=== PATIENT | male | born 1965 | race Caucasian/White ===

== ENCOUNTER 2019-12-28 17:57 | Emergency (ER) | payer OTHER ==
[~2019-12-28] VITALS: Ht 188 cm; Wt 101.6 kg
== END 2019-12-28 22:22 | disposition home or self-care (01) ==
LOC: ER 17:57
DX: J06.9 Acute upper respiratory infection, unspecified (principal)

== ENCOUNTER 2020-09-04 20:10 | Emergency (ER) | payer OTHER ==
[~2020-09-04] VITALS: Ht 188 cm; Wt 98.4 kg
[2020-09-05] MEDS ORDERED: BACTRIM DS TAB1 EACH PO (02:19)
== END 2020-09-05 02:28 | disposition home or self-care (01) ==
LOC: ER 20:10
DX: N39.0 Urinary tract infection, site not specified (principal); B34.9 Viral infection, unspecified

== ENCOUNTER 2021-08-01 13:03 | Emergency (ER) | payer OTHER ==
[~2021-08-01] VITALS: Ht 188 cm; Wt 101.6 kg
[~2021-08-01 13:03] MED LIST: BACTRIM DS TAB1 EACH PO
[2021-08-01] MEDS ORDERED: ZESTRIL20 MG PO (13:42)
[2021-08-01] MEDS ORDERED: DICLOFENAC SODI75 MG PO (16:42)
== END 2021-08-01 16:49 | disposition home or self-care (01) ==
LOC: ER 13:03
DX: R30.0 Dysuria (principal)

== ENCOUNTER 2021-08-30 09:59 | Emergency (ER) | payer OTHER ==
[~2021-08-30] VITALS: Ht 188 cm; Wt 98.4 kg
[~2021-08-30 09:59] MED LIST changes: +DICLOFENAC SODI75 MG PO; +ZESTRIL20 MG PO
== END 2021-08-30 12:05 | disposition home or self-care (01) ==
LOC: ER 09:59
DX: G44.209 Tension-type headache, unspecified, not intractable (principal)

== ENCOUNTER 2021-09-11 10:43 | Emergency (ER) | payer OTHER ==
[~2021-09-11] VITALS: Ht 188 cm; Wt 98.4 kg
[2021-09-11] MEDS ORDERED: NORFLEX100MG PO (14:27)
[2021-09-11] MEDS ORDERED: KETO10TA2 PO (14:27)
== END 2021-09-11 14:45 | disposition home or self-care (01) ==
LOC: ER 10:43
DX: M54.50 Low back pain, unspecified (principal)

== ENCOUNTER 2021-09-29 02:57 | Emergency (ER) | payer OTHER ==
[~2021-09-29] VITALS: Ht 188 cm; Wt 98.4 kg
[~2021-09-29 02:57] MED LIST changes: +KETO10TA2 PO; +NORFLEX100MG PO
[2021-09-29] MEDS ORDERED: PHENAGIL TABLE1 EACH PO (04:45)
== END 2021-09-29 04:52 ==
LOC: ER 02:57
DX: B34.9 Viral infection, unspecified (principal); I10 Essential (primary) hypertension

== ENCOUNTER → 2024-12-07 | Emergency (ER) | payer OTHER ==
[~2024-12-07] VITALS: Ht 188 cm; Wt 99.8 kg
[~2024-12-07] MED LIST changes: +CIPRO500 MG PO; +CIPROFLOXACIN IN 5 % DEXTROSE 400 MG/200 ML PIGGYBAG IV STA; +FINASTERIDE1 MG PO; +LISINOPRIL10 MG PO; +PHENAGIL TABLE1 EACH PO; +PIPERACILLIN/TAZOBACTAM SODIUM 3.375 GM VIAL IV ONE; +SILODOSIN8 MG PO; +TAPAZOLE5 MG PO
[2024-12-07 10:42] LABS: BASO % 0.4 % (0.1-1.2); EOS # 0.01 (0.04-0.54); EOS % 0.1 % (0.7-7.0); LYMPH # 1.46 (1.18-3.74); LYMPH % 8.8 % (19.3-53.1); MEAN PLATELET VOLUME 9.70 fl (9.4-12.4); MONO # 1.53 (0.24-0.82); MONO % 9.2 % (4.7-12.5); NEUT # 13.50 (1.56-6.13); NEUT % 81.1 % (34.0-71.1); RED CELL DISTRIBUTION WIDTH 12.8 % (11.6-14.4)
[2024-12-07 11:20] LABS: URINE APPEARANCE Clear; URINE BILIRRUBIN Negative (NEGATIVE); URINE BLOOD Negative; URINE COLOR Yellow; URINE GLUCOSE Negative (NEGATIVE); URINE KETONE Negative (NEGATIVE); URINE LEUKOCYTE Small; URINE NITRATE Negative; URINE PROTEIN Negative (NEGATIVE); URINE UROBILINOGEN 1.0 E.U./dl
[2024-12-07 11:25] LABS: URINE BACTERIA 52.7 uL (0.0-1933); URINE EPITHELIAL CELLS 3.2 uL (0.0-38.8); URINE RBC 4.8 uL (0.0-20.8); URINE WBC 169.8 uL (0.0-23.2)
[2024-12-07 11:29] LABS: URINE CAST 0.00 uL (0.0-1.40)
== END | disposition home or self-care (01) ==
LOC: ER 09:37
PROVIDERS: Emergency Medicine
DX: N41.9 Inflammatory disease of prostate, unspecified (principal); N39.0 Urinary tract infection, site not specified; B96.20 Unspecified Escherichia coli [E. coli] as the cause of diseases classified elsewhere; N40.0 Benign prostatic hyperplasia without lower urinary tract symptoms; K57.30 Diverticulosis of large intestine without perforation or abscess without bleeding